=== PATIENT | female | born 1960 | race Caucasian/White ===

== ENCOUNTER 2019-11-28 16:09 | Inpatient (IN) | payer MEDICAID ==
[~2019-11-28] VITALS: Ht 157.5 cm; Wt 80.5 kg
[2019-11-28] VITALS (7 sets, daily range): BP systolic 112–145; BP diastolic 52–77
--- NOTE | 2019-11-28 16:16 | NUR ---
PT BIB [facility], PER PT REPORT SHE HAS BEEN HAVING "ORTHOSTATIC ISSUES" FOR THE PAST WEEK. WHEN PT GOES FROM SITTING TO STANDING PT FEELS NAUSEATED, LIGHTHEADED AND HAS TO SIT DOWN. PER EMS PT BP SITTING 110/60, STANDIG 88/50. PIV INITITATED EN ROUTE, PT RECIEVED 200CC NS. PT DENIES CP, SOB AT THIS TIME. PT TO CARD MONITOR, BP, CONT PULSE
[2019-11-28] MEDS ORDERED: SODIUM CHLORIDE 0.9% 1,000ML IVBOLUS ONE (17:00)
[2019-11-28] MEDS ORDERED: PLEASE ENTER ALLERGIES MC SCH (17:00)
[2019-11-28 17:23] LABS: ALANINE AMINOTRANSFERASE 20 U/L (12-78); ANION GAP 7 mmol/L (5-15); CALCIUM 8.5 mg/dL (8.5-10.1); CHLORIDE 108 mmol/L (98-107); CREATININE 0.53 mg/dL (0.55-1.02)
[2019-11-28 17:27] LABS: ALKALINE PHOSPHATASE 99 U/L (45-117); BILIRUBIN,TOTAL 1.1 mg/dL (0.2-1.0); TROPONIN I < 0.015 ng/mL (0.000-0.045)
[2019-11-28 17:31] LABS: MD YES; MEAN CORPUSCULAR HEMOGLOBIN 16.5 pg (27.0-34.8); MEAN CORPUSCULAR VOLUME 59.2 fL (80-100); MEAN PLATELET VOLUME 7.6 fL (7.4-10.4); PLATELET COUNT 187 x10^3/uL (130-400); RED CELL DISTRIBUTION WIDTH 20.3 % (9.6-15.2)
[2019-11-28 17:37] LABS: BASOS#(MANUAL) 0.14 x10^3/uL (0-0.1); BASOS% (MANUAL) 3 % (0-1); EOS#(MANUAL) 0.05 x10^3/uL (0.0-0.4); EOS% (MANUAL) 1 % (1-7); LYMPHS% (MANUAL) 24 % (22-44); MONOS#(MANUAL) 0.09 x10^3/uL (0.3-2.7); MONOS% (MANUAL) 2 % (2-9); SEG#(MANUAL) 3.22 x10^3/uL (1.8-6.8); SEGS% (MANUAL) 70 % (42-75)
[2019-11-28 17:38] LABS: ANISOCYTOSIS 2+; HYPOCHROMIA 2+; MICROCYTOSIS 2+
--- NOTE | 2019-11-28 17:38 | NUR ---
PT TO CT AT THIS TIME. LAB CALLED WITH CRITICAL RESULTS HGB 4.5, HCT 16. ERMD UPDATED
[2019-11-28 17:39] LABS: TEAR DROPS 1+
[2019-11-28 17:40] LABS: <PLATELET ESTIMATE> ADEQUATE; OVALOCYTES 1+; SPHEROCYTES 1+; TARGET CELLS 1+
[2019-11-28 17:41] LABS: <PLT MORPHOLOGY> NORMAL PLT MORPH
--- NOTE | 2019-11-28 18:07 | NUR ---
ADDITIONAL IV ACCESS INITIATED. ASSISTED ERMD WITH BEDSIDE RECTAL EXAM, PT + GUAIC. LAB IN TO DRAW TYPE/CROSS
[2019-11-28] MEDS ORDERED: PANTOPRAZOLE 40 MG IV ONE ×2 (18:25→19:02)
[2019-11-28] MEDS ORDERED: PANTOPRAZOLE 40 MG IV IVPush ONE ×2 (18:30→19:00)
--- NOTE | 2019-11-28 18:49 | NUR ---
REPORT RECEIVED FORM MICHELLE DE LEON. PLAN OF CARE DISCUSSED. BLOOD INFUSION RUNNING AT THIS TIME
[2019-11-28] MEDS: SODIUM CHLORIDE 0.9% 1,000 ML IV SCH ×2 (19:01→22:00)
[2019-11-28] MEDS ORDERED: BISACODYL 10 MG SUPP PR PRN (19:30)
[2019-11-28] MEDS: NICOTINE 14MG/24 HR PATCH.TD24 TD SCH (19:30)
[2019-11-28] MEDS ORDERED: ONDANSETRON ODT 4 MG PO PRN (19:30)
[2019-11-28] MEDS ORDERED: POLYETHYLENE GLYCOL 17 GM PACKET PO PRN (19:30)
[2019-11-28 19:31] LABS: INTERNATIONAL NORMALIZED RATIO 1.09 (0.93-1.1); PROTHROMBIN TIME 11.6 Seconds (9.6-11.5)
[2019-11-28 19:52] LABS: FREE T4 (FREE THYROXINE) 0.59 ng/dL (0.76-1.46)
--- NOTE | 2019-11-28 19:53 | NUR ---
BLOOD TRANSFUSION COMPLETED. REPORT GIVEN TO MICHELLE HERNANDEZ. PLAN OF CARE DISCUSSED. MAINTINENCE IVF RUNNING AT THIS TIME
[2019-11-28] MEDS: PANTOPRAZOLE 80 MG in SODIUM CHLORIDE 0.9% 100 ML IV SCH (19:58)
--- NOTE | 2019-11-28 20:01 | NUR ---
IV PROTONIX DRIP STARTED PRIOR TO TRANSFER
[2019-11-28] MEDS: ACETAMINOPHEN 325 MG TABLET PO PRN (23:24)
[2019-11-28] MEDS ORDERED: CHLORDIAZEPOXIDE 25 MG CAPSULE PO PRN (23:30)
[2019-11-28] MEDS ORDERED: LORazepam 2 MG/ML, 1ML IVPush PRN (23:30)
[2019-11-29] VITALS (19 sets, daily range): BP systolic 107–146; BP diastolic 64–79
[2019-11-29 05:54] LABS: MEAN CORPUSCULAR HEMOGLOBIN 20.5 pg (27.0-34.8); MEAN CORPUSCULAR HGB CONC 30.2 g/dL (32.4-35.8); MEAN PLATELET VOLUME 7.6 fL (7.4-10.4); PLATELET COUNT 155 x10^3/uL (130-400); RED BLOOD COUNT 3.17 x10^6/uL (3.82-5.3); RED CELL DISTRIBUTION WIDTH 26.8 % (9.6-15.2)
[2019-11-29 05:56] LABS: ANION GAP 6 mmol/L (5-15); CALCIUM 7.8 mg/dL (8.5-10.1); CHLORIDE 111 mmol/L (98-107)
[2019-11-29] MEDS: PANTOPRAZOLE 80 MG in SODIUM CHLORIDE 0.9% 100 ML IV SCH ×2 (05:58→16:03)
[2019-11-29 06:02] LABS: % IRON SATURATION 20 % (20-55); IRON LEVEL 92 mcg/dL (50-170); TOTAL IRON BINDING CAPACITY 456 mcg/dL (250-450); TROPONIN I < 0.015 ng/mL (0.000-0.045)
[2019-11-29 06:26] LABS: ANISOCYTOSIS 2+; BASOPHILS # (AUTO) 0.07 x10^3/uL (0-0.1); BASOPHILS % (AUTO) 1 % (0-1); EOSINOPHILS # (AUTO) 0.15 x10^3/uL (0-0.4); EOSINOPHILS % (AUTO) 3 % (1-7); HYPOCHROMIA 2+; LYMPHOCYTES # (AUTO) 1.47 x10^3/uL (1-3.4); LYMPHOCYTES % (AUTO) 31 % (22-44); MD MORPH REVIEW ONLY; MICROCYTOSIS 2+; MONOCYTES # (AUTO) 0.28 x10^3/uL (0.2-0.8); MONOCYTES % (AUTO) 6 % (2-9); NEUTROPHILS # (AUTO) 2.77 x10^3/uL (1.8-6.8); NEUTROPHILS % (AUTO) 58 % (42-75); POLYCHROMASIA 1+
[2019-11-29 06:27] LABS: OVALOCYTES 1+; TEAR DROPS 1+
[2019-11-29 06:28] LABS: <PLATELET ESTIMATE> ADEQUATE; <PLT MORPHOLOGY> NORMAL PLT MORPH
[2019-11-29] MEDS ORDERED: THIAMINE 200 MG in SODIUM CHLORIDE 0.9% 50 ML IV ONE (07:30)
[2019-11-29] MEDS: SENNA/DOCUSATE TABLET PO SCH (07:56)
[2019-11-29] MEDS ORDERED: PROPOFOL 10 MG/ML, 20ML ONE (09:58)
[2019-11-29] MEDS ORDERED: POTASSIUM CHLORIDE 20 MEQ, MAGNESIUM SULFATE 1 GM, MVI ADULT 10 ML, THIAMINE 200 MG, FO... IV SCH (12:00)
[2019-11-29 12:29] LABS: TROPONIN I 0.016 ng/mL (0.000-0.045)
[2019-11-29] MEDS ORDERED: MOVIPREP POWDER 1 PREP KIT PO ONE (15:00)
[2019-11-29] MEDS ORDERED: POTASSIUM CHLORIDE 20 MEQ in SODIUM CHLORIDE 0.9% 1,000 ML IV SCH (19:01)
[2019-11-29] MEDS: NICOTINE 14MG/24 HR PATCH.TD24 TD SCH (19:30)
[2019-11-29] MEDS: ACETAMINOPHEN 325 MG TABLET PO PRN (19:40)
[2019-11-30 02:16] VITALS: BP 132/62
[2019-11-30] MEDS: PANTOPRAZOLE 80 MG in SODIUM CHLORIDE 0.9% 100 ML IV SCH (03:14)
[2019-11-30 05:46] LABS: ANION GAP 7 mmol/L (5-15); CALCIUM 8.1 mg/dL (8.5-10.1); CHLORIDE 114 mmol/L (98-107)
[2019-11-30 05:48] LABS: CREATININE 0.49 mg/dL (0.55-1.02); MEAN CORPUSCULAR HEMOGLOBIN 22.5 pg (27.0-34.8); MEAN CORPUSCULAR HGB CONC 31.1 g/dL (32.4-35.8); MEAN CORPUSCULAR VOLUME 72.2 fL (80-100); MEAN PLATELET VOLUME 7.7 fL (7.4-10.4); PLATELET COUNT 167 x10^3/uL (130-400); RED BLOOD COUNT 3.69 x10^6/uL (3.82-5.3); RED CELL DISTRIBUTION WIDTH 27.8 % (9.6-15.2)
[2019-11-30 06:18] LABS: BASOPHILS # (AUTO) 0.07 x10^3/uL (0-0.1); BASOPHILS % (AUTO) 1 % (0-1); EOSINOPHILS # (AUTO) 0.11 x10^3/uL (0-0.4); EOSINOPHILS % (AUTO) 2 % (1-7); LYMPHOCYTES % (AUTO) 30 % (22-44); MD SCAN; MONOCYTES # (AUTO) 0.32 x10^3/uL (0.2-0.8); MONOCYTES % (AUTO) 6 % (2-9); NEUTROPHILS # (AUTO) 3.27 x10^3/uL (1.8-6.8); NEUTROPHILS % (AUTO) 61 % (42-75)
[2019-11-30] MEDS ORDERED: POTASSIUM CHLORIDE 20 MEQ in SODIUM CHLORIDE 0.9% 1,000 ML IV SCH (07:00)
[2019-11-30 07:58] VITALS: BP 131/78
[2019-11-30] MEDS ORDERED: hydrALAzine 20 MG/ML, 1ML IV PRN (09:00)
[2019-11-30] MEDS: SENNA/DOCUSATE TABLET PO SCH (09:00)
[2019-11-30] MEDS ORDERED: DIAZEPAM 5 MG/ML, 2ML IVPush PRN (09:00)
[2019-11-30] MEDS ORDERED: HALOPERIDOL 5 MG/ML IV PRN (09:00)
[2019-11-30] MEDS ORDERED: MIDAZOLAM 1 MG/ML, 2ML IV PRN (09:00)
[2019-11-30] MEDS ORDERED: HYDROmorphone 2 MG/ML, 1ML IVPush PRN (09:00)
[2019-11-30] MEDS ORDERED: PROMETHAZINE 12.5 MG SUPP PR PRN (09:00)
[2019-11-30] MEDS ORDERED: ONDANSETRON 2MG/ML, 2ML IV PRN (09:00)
[2019-11-30] MEDS ORDERED: OXYcodone 5 MG/5 ML ORAL.SOL UDC PO PRN (09:00)
[2019-11-30] MEDS ORDERED: ONDANSETRON ODT 8 MG PO PRN (09:00)
[2019-11-30] MEDS ORDERED: MEPERIDINE/PF 25MG/ML,1ML IVPush PRN (09:00)
[2019-11-30] MEDS ORDERED: LABETALOL 5MG/ML, 20ML IV PRN (09:00)
[2019-11-30] MEDS ORDERED: EPHEDRINE 50 MG/ML, 1ML IVPush PRN (09:00)
[2019-11-30] MEDS ORDERED: FENTANYL PF 100 MCG/2ML IV PRN (09:00)
[2019-11-30] MEDS ORDERED: ALBUTEROL SULFATE 2.5 MG/3 ML NPPB PRN (09:00)
[2019-11-30] MEDS ORDERED: PROMETHAZINE 25 MG/ML, 1ML IV PRN (09:00)
[2019-11-30] MEDS ORDERED: PROPOFOL 10 MG/ML, 20ML ONE (09:10)
[2019-11-30] MEDS ORDERED: PANT40TA5 PO (10:48)
[2019-11-30] MEDS ORDERED: LEVO25TA4 PO (10:48)
[2019-11-30] MEDS ORDERED: MULT1TAB60 PO (10:49)
[2019-11-30] MEDS ORDERED: PANTOPROZOLE 40MG TABLET PO SCH (11:00)
[2019-11-30] MEDS ORDERED: CYAN-27 PO (11:03)
[2019-11-30 15:53] VITALS: BP 124/74
== END 2019-11-30 19:39 | disposition home or self-care (01) | DRG 378 ==
LOC: ED 18:55 → EDIP 19:01 → ED 19:38 → 4WST 20:11
PROVIDERS: ADMIT Hospitalist; ATTEND Hospitalist
PROC: 30233N1 Transfusion of Nonautologous Red Blood Cells into Peripheral Vein, Percutaneous Approach (ICD-10-PCS; 2019-11-28)
PROC: 0DJD8ZZ Inspection of Lower Intestinal Tract, Via Natural or Artificial Opening Endoscopic (ICD-10-PCS; 2019-11-29)
PROC: 0DJ08ZZ Inspection of Upper Intestinal Tract, Via Natural or Artificial Opening Endoscopic (ICD-10-PCS; principal; 2019-11-29 12:00)
DX: K92.1 Melena (principal); D62 Acute posthemorrhagic anemia; E03.9 Hypothyroidism, unspecified; E87.6 Hypokalemia; F10.20 Alcohol dependence, uncomplicated; F17.210 Nicotine dependence, cigarettes, uncomplicated; F32.9 Major depressive disorder, single episode, unspecified; F41.9 Anxiety disorder, unspecified; G25.81 Restless legs syndrome; Z66 Do not resuscitate; K57.90 Diverticulosis of intestine, part unspecified, without perforation or abscess without bleeding; K64.8 Other hemorrhoids; Z80.8 Family history of malignant neoplasm of other organs or systems; Z87.19 Personal history of other diseases of the digestive system; Z92.3 Personal history of irradiation
CPT/HCPCS: 36415; 36430; 70450; 71045; 80048; 80053; 80307; 82607; 83540; 83550; 84439; 84443; 84484; 85014; 85018; 85025; 85610; 85730; 86850; 86900; 86923; 93005; 96374; 96376; G0378; J2704; J3411; J3475; J3480; C9113; J7030; P9016

== ENCOUNTER 2020-11-18 11:45 | Inpatient (IN) | payer MEDICAID ==
[~2020-11-18] VITALS: Ht 157.5 cm; Wt 94.4 kg
[2020-11-18] VITALS (7 sets, daily range): BP systolic 105–124; BP diastolic 52–64
[~2020-11-18 11:45] MED LIST: CYAN-27 PO; LEVO25TA4 PO; MULT-449 PO; PANT40TA6 PO
[2020-11-18 13:28] LABS: BASOPHILS % (AUTO) 1 % (0-1); EOSINOPHILS % (AUTO) 1 % (1-7); LYMPHOCYTES % (AUTO) 21 % (22-44); MEAN CORPUSCULAR HEMOGLOBIN 19.8 pg (27.0-34.8); MEAN PLATELET VOLUME 8.7 fL (7.4-10.4); MONOCYTES % (AUTO) 11 % (2-9); NEUTROPHILS % (AUTO) 66 % (42-75); PLATELET COUNT 127 x10^3/uL (130-400); RED BLOOD COUNT 3.81 x10^6/uL (3.82-5.3); RED CELL DISTRIBUTION WIDTH 19.7 % (9.6-15.2)
[2020-11-18] MEDS ORDERED: ONDANSETRON 2MG/ML, 2ML IVPush ONE (13:30)
[2020-11-18] MEDS ORDERED: SODIUM CHLORIDE 0.9% 1,000ML IVBOLUS ONE (13:30)
[2020-11-18] MEDS ORDERED: ONDANSETRON 2MG/ML, 2ML ONE (13:32)
[2020-11-18 13:38] LABS: ALBUMIN 3.4 g/dL (3.4-5.0); ANION GAP 9 mmol/L (5-15); CALCIUM 9.2 mg/dL (8.5-10.1); CHLORIDE 106 mmol/L (98-107)
[2020-11-18 13:42] LABS: ALANINE AMINOTRANSFERASE 29 U/L (12-78); ALKALINE PHOSPHATASE 95 U/L (45-117); CREATININE 0.59 mg/dL (0.55-1.02); TOTAL PROTEIN 8.1 g/dL (6.4-8.2)
[2020-11-18 13:45] LABS: MD SCAN; MEAN CORPUSCULAR HGB CONC 29.7 g/dL (32.4-35.8)
--- NOTE | 2020-11-18 15:29 | NUR ---
dr aviles in room to do consent witnessed by this rn. pt in bed with no signs or symptoms of acute distress noted repsirations even and unlabored. second iv started, pt ready for blood, pump in room with blood tubbing primed and ready
[2020-11-18 15:43] LABS: MICROSCOPIC INDICATED
[2020-11-18] MEDS ORDERED: CEFTRIAXONE PMX 1GM/50ML 50 ML ONE (16:43)
[2020-11-18] MEDS ORDERED: PANTOPRAZOLE 80 MG in SODIUM CHLORIDE 0.9% 100 ML IV SCH ×2 (17:00→18:00)
[2020-11-18] MEDS ORDERED: CEFTRIAXONE PMX 1GM/50ML 50 ML IV ONE (17:00)
[2020-11-18] MEDS ORDERED: MORPHINE SULFATE 4 MG/ML, 1ML ONE (17:14)
[2020-11-18] MEDS ORDERED: PANTOPRAZOLE 80 MG in SODIUM CHLORIDE 0.9% 50 ML IV ONE ×2 (17:30→17:45)
[2020-11-18] MEDS ORDERED: MORPHINE SULFATE 4 MG/ML, 1ML IVPush ONE (17:30)
--- NOTE | 2020-11-18 17:33 | NUR ---
report called to floor, rn states that bed is not available at this time. pt in bed with no signs or symptoms of acute dsitress noted respirations even and unlabore.d pt on quality assurance monitor final with o2 via nc at 1l/min, satting 99%. pt aware and agreeable with plan of care. this rn called pharm to confirm protonix dose, schedule adjusted and pharmacist state med is ready to administer
[2020-11-18] MEDS ORDERED: THIAMINE 200 MG in SODIUM CHLORIDE 0.9% 50 ML IV ONE (18:00)
[2020-11-18] MEDS: PANTOPRAZOLE 80 MG in SODIUM CHLORIDE 0.9% 100 ML IV SCH (18:00)
[2020-11-18] MEDS ORDERED: ONDANSETRON 2MG/ML, 2ML IVPush PRN (18:00)
[2020-11-18] MEDS ORDERED: POTASSIUM CHLORIDE 20 MEQ TAB.ER.PRT PO ONE (18:30)
[2020-11-18] MEDS ORDERED: GOLYTELY 4,000ML ORAL.SOL PO ONE ×2 (19:30→21:30)
[2020-11-18] MEDS: SODIUM CHLORIDE 0.9% 1,000 ML IV SCH (21:22)
[2020-11-19 00:16] VITALS: BP 117/77
[2020-11-19] MEDS: PANTOPRAZOLE 80 MG in SODIUM CHLORIDE 0.9% 100 ML IV SCH ×2 (02:45→14:52)
[2020-11-19] MEDS: LEVOTHYROXINE 50 MCG TABLET PO SCH (05:41)
[2020-11-19 05:54] LABS: ALBUMIN 3.1 g/dL (3.4-5.0); ANION GAP 8 mmol/L (5-15); CALCIUM 8.3 mg/dL (8.5-10.1); CHLORIDE 108 mmol/L (98-107)
[2020-11-19 05:57] LABS: ALANINE AMINOTRANSFERASE 27 U/L (12-78); ALKALINE PHOSPHATASE 89 U/L (45-117); BILIRUBIN,TOTAL 2.2 mg/dL (0.2-1.0); CREATININE 0.57 mg/dL (0.55-1.02); TOTAL PROTEIN 7.7 g/dL (6.4-8.2)
[2020-11-19 06:00] LABS: BASOPHILS % (AUTO) 5 % (0-1); EOSINOPHILS % (AUTO) 3 % (1-7); LYMPHOCYTES % (AUTO) 18 % (22-44); MEAN CORPUSCULAR HEMOGLOBIN 21.1 pg (27.0-34.8); MEAN PLATELET VOLUME 8.2 fL (7.4-10.4); MONOCYTES % (AUTO) 7 % (2-9); NEUTROPHILS % (AUTO) 67 % (42-75); PLATELET COUNT 111 x10^3/uL (130-400); RED BLOOD COUNT 3.94 x10^6/uL (3.82-5.3); RED CELL DISTRIBUTION WIDTH 22.7 % (9.6-15.2)
[2020-11-19 06:17] LABS: MD MORPH REVIEW ONLY; MEAN CORPUSCULAR HGB CONC 29.9 g/dL (32.4-35.8)
[2020-11-19 06:20] LABS: AMPHETAMINE SCREEN, URINE Negative (Negative); BARBITURATE SCREEN, URINE Negative (Negative); BENZODIAZEPINE SCREEN, URINE Negative (Negative); CANNABINOID SCREEN, URINE Negative (Negative); COCAINE SCREEN, URINE Negative (Negative); METHADONE SCREEN, URINE Negative (Negative); OPIATE SCREEN, URINE Positive (Negative)
[2020-11-19 06:20] LABS: ANISOCYTOSIS 2+; HYPOCHROMIA 1+; MICROCYTOSIS 2+
[2020-11-19 06:21] LABS: <PLATELET ESTIMATE> ADEQUATE; <PLT MORPHOLOGY> NORMAL PLT MORPH; OVALOCYTES 1+; STOMATOCYTES 1+
[2020-11-19 06:34] VITALS: BP 118/75
[2020-11-19] MEDS: MULTIVITAMINS WITH IRON TABLET PO SCH (08:15)
[2020-11-19] MEDS: SODIUM CHLORIDE 0.9% 1,000 ML IV SCH ×2 (08:16→21:01)
[2020-11-19] MEDS: ACETAMINOPHEN 325 MG TABLET PO PRN ×2 (08:31→20:09)
[2020-11-19 11:28] LABS: INTERNATIONAL NORMALIZED RATIO 1.23 (0.93-1.1); PROTHROMBIN TIME 13.1 Seconds (9.6-11.5)
[2020-11-19] MEDS ORDERED: CHLORHEXIDINE 15 ML UDC ONE (11:49)
[2020-11-19] MEDS ORDERED: PROPOFOL 50 ML ONE (12:16)
[2020-11-19] MEDS ORDERED: ONDANSETRON 2MG/ML, 2ML IVPush PRN (12:30)
[2020-11-19] MEDS ORDERED: EPHEDRINE 50 MG/ML, 1ML IM PRN (12:30)
[2020-11-19] MEDS ORDERED: EPHEDRINE 50 MG/ML, 1ML IVPush PRN (12:30)
[2020-11-19] MEDS ORDERED: MEPERIDINE/PF 25MG/0.5ML IVPush PRN (12:30)
[2020-11-19] MEDS ORDERED: DIAZEPAM 5 MG/ML, 2ML IVPush PRN (12:30)
[2020-11-19] MEDS ORDERED: LABETALOL 5MG/ML, 20ML IV PRN (12:30)
[2020-11-19] MEDS ORDERED: DIPHENHYDRAMINE 50 MG/ML, 1ML IVPush PRN (12:30)
[2020-11-19] MEDS ORDERED: FENTANYL PF 100 MCG/2ML IV PRN (12:30)
[2020-11-19] MEDS ORDERED: PROMETHAZINE 25 MG/ML, 1ML IVPush PRN (12:30)
[2020-11-19] MEDS: CEFTRIAXONE PMX 1GM/50ML 50 ML IV SCH (17:11)
[2020-11-19 19:59] VITALS: BP 133/73
[2020-11-20 00:51] VITALS: BP 112/63
[2020-11-20] MEDS: PANTOPRAZOLE 80 MG in SODIUM CHLORIDE 0.9% 100 ML IV SCH ×3 (00:55→23:58)
[2020-11-20] MEDS: LEVOTHYROXINE 50 MCG TABLET PO SCH (05:44)
[2020-11-20 06:42] VITALS: BP 129/71
[2020-11-20 07:00] LABS: MEAN CORPUSCULAR HEMOGLOBIN 21.5 pg (27.0-34.8); MEAN CORPUSCULAR HGB CONC 30.2 g/dL (32.4-35.8); MEAN PLATELET VOLUME 7.6 fL (7.4-10.4); PLATELET COUNT 124 x10^3/uL (130-400); RED BLOOD COUNT 3.79 x10^6/uL (3.82-5.3); RED CELL DISTRIBUTION WIDTH 22.5 % (9.6-15.2)
[2020-11-20 07:14] LABS: ALANINE AMINOTRANSFERASE 28 U/L (12-78); ANION GAP 8 mmol/L (5-15); CALCIUM 8.3 mg/dL (8.5-10.1); CHLORIDE 110 mmol/L (98-107)
[2020-11-20 07:17] LABS: ALKALINE PHOSPHATASE 87 U/L (45-117); BILIRUBIN,TOTAL 1.3 mg/dL (0.2-1.0); CREATININE 0.51 mg/dL (0.55-1.02); TOTAL PROTEIN 7.4 g/dL (6.4-8.2)
[2020-11-20 07:28] LABS: MD YES
[2020-11-20 07:30] LABS: ANISOCYTOSIS 1+; BAND#(MANUAL) 0.05 x10^3/uL; BANDS%(MANUAL) 1 % (0-7); BASOS#(MANUAL) 0.05 x10^3/uL (0-0.1); BASOS% (MANUAL) 1 % (0-1); EOS% (MANUAL) 2 % (1-7); HYPOCHROMIA 1+; LYMPHS% (MANUAL) 23 % (22-44); MICROCYTOSIS 1+; MONOS#(MANUAL) 0.14 x10^3/uL (0.3-2.7); MONOS% (MANUAL) 3 % (2-9); SEG#(MANUAL) 3.36 x10^3/uL (1.8-6.8); SEGS% (MANUAL) 70 % (42-75)
[2020-11-20 07:32] LABS: <PLATELET ESTIMATE> DECREASED; LARGE PLATELETS 1+
[2020-11-20] MEDS: SODIUM CHLORIDE 0.9% 1,000 ML IV SCH ×2 (10:00→20:47)
[2020-11-20] MEDS: MULTIVITAMINS WITH IRON TABLET PO SCH (10:14)
[2020-11-20 14:00] VITALS: BP 125/71
[2020-11-20] MEDS: ACETAMINOPHEN 325 MG TABLET PO PRN ×2 (16:33→23:06)
[2020-11-20] MEDS: CEFTRIAXONE PMX 1GM/50ML 50 ML IV SCH (17:27)
[2020-11-20 18:43] VITALS: BP 130/64
[2020-11-20] MEDS ORDERED: OMNIPAQUE 350 MG/ML, 75ML BOTTLE ONE (22:44)
[2020-11-21 00:02] VITALS: BP 134/75
[2020-11-21 06:00] LABS: ANION GAP 7 mmol/L (5-15); CALCIUM 8.2 mg/dL (8.5-10.1); CHLORIDE 112 mmol/L (98-107); CREATININE 0.44 mg/dL (0.55-1.02)
[2020-11-21 06:05] LABS: MEAN CORPUSCULAR HEMOGLOBIN 21.7 pg (27.0-34.8); MEAN CORPUSCULAR HGB CONC 30.4 g/dL (32.4-35.8); MEAN PLATELET VOLUME 8.4 fL (7.4-10.4); PLATELET COUNT 119 x10^3/uL (130-400); RED BLOOD COUNT 3.52 x10^6/uL (3.82-5.3); RED CELL DISTRIBUTION WIDTH 23.2 % (9.6-15.2)
[2020-11-21] MEDS: LEVOTHYROXINE 50 MCG TABLET PO SCH (06:31)
[2020-11-21] MEDS: SODIUM CHLORIDE 0.9% 1,000 ML IV SCH (06:32)
[2020-11-21 06:45] LABS: MD YES
[2020-11-21 06:48] LABS: <PLATELET ESTIMATE> DECREASED; ANISOCYTOSIS 1+; EOS#(MANUAL) 0.14 x10^3/uL (0.0-0.4); EOS% (MANUAL) 3 % (1-7); HYPOCHROMIA 1+; LYMPH#(MANUAL) 1.41 x10^3/uL (1-3.4); LYMPHS% (MANUAL) 30 % (22-44); MICROCYTOSIS 1+; MONOS#(MANUAL) 0.19 x10^3/uL (0.3-2.7); MONOS% (MANUAL) 4 % (2-9); OVALOCYTES 1+; POLYCHROMASIA 1+; SEG#(MANUAL) 2.96 x10^3/uL (1.8-6.8); SEGS% (MANUAL) 63 % (42-75)
[2020-11-21 06:49] LABS: LARGE PLATELETS 1+
[2020-11-21 06:57] VITALS: BP 136/77
[2020-11-21] MEDS ORDERED: POTASSIUM CHLORIDE 20 MEQ in SODIUM CHLORIDE 0.9% 250 ML IV ONE (07:00)
[2020-11-21] MEDS ORDERED: POTASSIUM CHLORIDE 10% 40 MEQ/30 ML UDC PO ONE ×2 (07:00→17:30)
[2020-11-21] MEDS ORDERED: POTASSIUM CHLORIDE 20 MEQ TAB.ER.PRT ONE (07:30)
[2020-11-21] MEDS: MULTIVITAMINS WITH IRON TABLET PO SCH (07:42)
[2020-11-21] MEDS: PANTOPRAZOLE 40MG TABLET PO SCH ×2 (07:42→21:28)
[2020-11-21] MEDS ORDERED: MAGNESIUM SULFATE PMX 2GM/50ML 50 ML IV ONE (08:30)
[2020-11-21 11:51] VITALS: BP 137/81
[2020-11-21] MEDS ORDERED: SODIUM CHLORIDE 0.9% 1,000 ML IV SCH (12:00)
[2020-11-21] MEDS ORDERED: CEFAZOLIN PMX 1GM/50ML 50 ML IVPB ONE (12:00)
[2020-11-21] MEDS ORDERED: CEFAZOLIN PMX 1GM/50ML 50 ML ONE (14:13)
[2020-11-21] MEDS ORDERED: LIDOCAINE 1%, 20ML ONE (14:13)
[2020-11-21] MEDS ORDERED: FENTANYL PF 100 MCG/2ML ONE (14:13)
[2020-11-21] MEDS ORDERED: MIDAZOLAM 1 MG/ML, 2ML ONE ×4 (14:13→15:18)
[2020-11-21] MEDS ORDERED: CEFAZOLIN 1,000 MG ONE (14:13)
[2020-11-21] MEDS ORDERED: LIDOCAINE 2%, 20ML ONE (14:56)
[2020-11-21 16:00] VITALS: BP 141/70
[2020-11-21] MEDS ORDERED: HOLD MEDICATION MC PRN (16:00)
[2020-11-21] MEDS: ACETAMINOPHEN 325 MG TABLET PO PRN (16:27)
[2020-11-21] MEDS: SODIUM CHLORIDE FLUSH 10ML SYR IVF SCH (21:00)
[2020-11-21] MEDS: CEFTRIAXONE PMX 1GM/50ML 50 ML IV SCH (21:29)
[2020-11-21 21:32] VITALS: BP 127/74
[2020-11-21] MEDS: CEFAZOLIN PMX 1GM/50ML 50 ML IVPB SCH (23:34)
[2020-11-22] VITALS (9 sets, daily range): BP systolic 98–134; BP diastolic 64–76
[2020-11-22] MEDS: LEVOTHYROXINE 50 MCG TABLET PO SCH (06:26)
[2020-11-22] MEDS: CEFAZOLIN PMX 1GM/50ML 50 ML IVPB SCH (06:26)
[2020-11-22 06:31] LABS: MEAN CORPUSCULAR HEMOGLOBIN 21.5 pg (27.0-34.8); MEAN PLATELET VOLUME 7.8 fL (7.4-10.4); PLATELET COUNT 167 x10^3/uL (130-400); RED BLOOD COUNT 3.31 x10^6/uL (3.82-5.3); RED CELL DISTRIBUTION WIDTH 24.2 % (9.6-15.2)
[2020-11-22 06:47] LABS: CHLORIDE 110 mmol/L (98-107)
[2020-11-22 06:53] LABS: ANION GAP 8 mmol/L (5-15); CALCIUM 8.1 mg/dL (8.5-10.1); CREATININE 0.49 mg/dL (0.55-1.02)
[2020-11-22 07:42] LABS: MD YES; MEAN CORPUSCULAR HGB CONC 29.6 g/dL (32.4-35.8)
[2020-11-22 07:44] LABS: ANISOCYTOSIS 1+; EOS#(MANUAL) 0.22 x10^3/uL (0.0-0.4); EOS% (MANUAL) 4 % (1-7); HYPOCHROMIA 1+; LYMPH#(MANUAL) 0.72 x10^3/uL (1-3.4); LYMPHS% (MANUAL) 13 % (22-44); MICROCYTOSIS 1+; MONOS#(MANUAL) 0.44 x10^3/uL (0.3-2.7); MONOS% (MANUAL) 8 % (2-9); POLYCHROMASIA 1+; SEG#(MANUAL) 4.13 x10^3/uL (1.8-6.8); SEGS% (MANUAL) 75 % (42-75)
[2020-11-22 07:45] LABS: <PLATELET ESTIMATE> ADEQUATE; <PLT MORPHOLOGY> NORMAL PLT MORPH
[2020-11-22] MEDS: MULTIVITAMINS WITH IRON TABLET PO SCH (09:49)
[2020-11-22] MEDS: PANTOPRAZOLE 40MG TABLET PO SCH (09:49)
[2020-11-22] MEDS: SODIUM CHLORIDE FLUSH 10ML SYR IVF SCH (09:51)
[2020-11-22] MEDS ORDERED: PANT40TA6 PO (11:50)
== END 2020-11-22 17:22 | disposition home or self-care (01) | DRG 243 ==
LOC: ED 14:30 → EDIP 16:38 → 4EST 18:04 → 5SO 11-21 15:17
PROVIDERS: ADMIT Internal Medicine; ATTEND Internal Medicine
PROC: 30233N1 Transfusion of Nonautologous Red Blood Cells into Peripheral Vein, Percutaneous Approach (ICD-10-PCS; 2020-11-18)
PROC: 0DB98ZX Excision of Duodenum, Via Natural or Artificial Opening Endoscopic, Diagnostic (ICD-10-PCS; 2020-11-19)
PROC: 0DB68ZX Excision of Stomach, Via Natural or Artificial Opening Endoscopic, Diagnostic (ICD-10-PCS; 2020-11-19)
PROC: 0DB58ZX Excision of Esophagus, Via Natural or Artificial Opening Endoscopic, Diagnostic (ICD-10-PCS; 2020-11-19)
PROC: 0DBK8ZX Excision of Ascending Colon, Via Natural or Artificial Opening Endoscopic, Diagnostic (ICD-10-PCS; 2020-11-19)
PROC: 02H63JZ Insertion of Pacemaker Lead into Right Atrium, Percutaneous Approach (ICD-10-PCS; principal; 2020-11-21)
PROC: 02HK3JZ Insertion of Pacemaker Lead into Right Ventricle, Percutaneous Approach (ICD-10-PCS; 2020-11-21)
PROC: 0JH606Z Insertion of Pacemaker, Dual Chamber into Chest Subcutaneous Tissue and Fascia, Open Approach (ICD-10-PCS; 2020-11-21)
PROC: B5171ZZ Fluoroscopy of Left Subclavian Vein using Low Osmolar Contrast (ICD-10-PCS; 2020-11-21)
DX: I44.2 Atrioventricular block, complete (principal); N39.0 Urinary tract infection, site not specified; D68.9 Coagulation defect, unspecified; G25.81 Restless legs syndrome; F17.200 Nicotine dependence, unspecified, uncomplicated; F10.20 Alcohol dependence, uncomplicated; I49.5 Sick sinus syndrome; K31.7 Polyp of stomach and duodenum; K59.00 Constipation, unspecified; K63.5 Polyp of colon; K70.9 Alcoholic liver disease, unspecified; E03.9 Hypothyroidism, unspecified; D50.0 Iron deficiency anemia secondary to blood loss (chronic); B96.1 Klebsiella pneumoniae [K. pneumoniae] as the cause of diseases classified elsewhere; E66.9 Obesity, unspecified; F41.9 Anxiety disorder, unspecified; K57.90 Diverticulosis of intestine, part unspecified, without perforation or abscess without bleeding; R68.81 Early satiety; E83.42 Hypomagnesemia; Z20.822 Contact with and (suspected) exposure to COVID-19; E87.6 Hypokalemia; Z87.19 Personal history of other diseases of the digestive system; Z91.19 Patient's noncompliance with other medical treatment and regimen; Z79.899 Other long term (current) drug therapy; Z90.89 Acquired absence of other organs; Z68.38 Body mass index [BMI] 38.0-38.9, adult; Z80.9 Family history of malignant neoplasm, unspecified; Z82.49 Family history of ischemic heart disease and other diseases of the circulatory system
CPT/HCPCS: 36415; 96374; 96375; 99285; J3490; 36430; 71045; 71260; 76700; 80048; 80053; 80074; 80307; 81001; 82607; 82728; 83540; 83550; 83690; 83735; 84100; 84132; 84443; 84466; 85014; 85018; 85025; 85610; 86704; 86705; 86706; 86707; 86709; 86803; 86850; 86900; 86923; 87077; 87086; 87186; 87340; 87350; 87635; 88305; 93005; 93306; G0378; J0690; J0696; J2250; J2405; J2704; J3010; J3411; J3480; Q9967; C9113; J2270; J3475; J7030; J7050; P9016

== ENCOUNTER 2020-12-14 12:43 | Emergency (ER) | payer MEDICAID ==
[~2020-12-14] VITALS: Ht 157.5 cm; Wt 85.0 kg
--- NOTE | 2020-12-14 13:01 | NUR ---
PT BIB [facility]. PER REPORT, PT HAS BEEN REPORTING ANXIETY AND SOB SINCE YESTERDAY AFTERNOON. PT REPORTS THAT SHE HAS HAD A LOT OF STRESSORS IN HER LIFE LATELY AND HAS BEEN FEELING VERY ANXIOUS. PT JUST HAD PACEMAKER PLACED 3 WEEKS AGO. PT DENIES ANY CHEST PAIN, PALPITAIONS, FEVER, NAUSEA OR VOMITING.
--- NOTE | 2020-12-14 14:07 | NUR ---
PT AMBULATED TO RESTROOM
[2020-12-14 14:50] LABS: ALBUMIN 3.4 g/dL (3.4-5.0); ANION GAP 8 mmol/L (5-15); CALCIUM 8.6 mg/dL (8.5-10.1); CHLORIDE 111 mmol/L (98-107); CREATININE 0.57 mg/dL (0.55-1.02)
[2020-12-14 14:54] LABS: TROPONIN I < 0.015 ng/mL (0.000-0.045)
--- NOTE | 2020-12-14 15:00 | NUR ---
REPORT GIVEN TO MICHELLE RUSS
[2020-12-14 15:38] LABS: MEAN CORPUSCULAR HEMOGLOBIN 20.8 pg (27.0-34.8); MEAN PLATELET VOLUME 8.4 fL (7.4-10.4); PLATELET COUNT 133 x10^3/uL (130-400); RED BLOOD COUNT 4.16 x10^6/uL (3.82-5.3); RED CELL DISTRIBUTION WIDTH 21.8 % (9.6-15.2)
[2020-12-14 16:00] LABS: MEAN CORPUSCULAR HGB CONC 29.7 g/dL (32.4-35.8)
[2020-12-14 16:01] LABS: MD YES
[2020-12-14 16:09] LABS: BASOS#(MANUAL) 0.23 x10^3/uL (0-0.1); BASOS% (MANUAL) 7 % (0-1); EOS% (MANUAL) 6 % (1-7); LYMPH#(MANUAL) 1.65 x10^3/uL (1-3.4); LYMPHS% (MANUAL) 50 % (22-44); MONOS#(MANUAL) 0.17 x10^3/uL (0.3-2.7); MONOS% (MANUAL) 5 % (2-9); SEG#(MANUAL) 1.06 x10^3/uL (1.8-6.8); SEGS% (MANUAL) 32 % (42-75)
[2020-12-14 16:11] LABS: ANISOCYTOSIS 1+; HYPOCHROMIA 1+; MICROCYTOSIS 1+
[2020-12-14 16:12] LABS: OVALOCYTES 1+
[2020-12-14 16:13] LABS: <PLATELET ESTIMATE> ADEQUATE; <PLT MORPHOLOGY> NORMAL PLT MORPH
[2020-12-14 16:29] VITALS: BP 105/71
--- NOTE | 2020-12-14 16:29 | NUR ---
this rn ambulated with pt on pulse oximeter, pt walked with steady gait and good balance, no desaturations noted while walking, though pt states she felt like she was short of breath, respirations were even and unlabored throughout. pt returned safely to bed, with no signs or symptoms of acute distress noted, vs charted, aware. pt will be ready to dc
== END 2020-12-14 17:03 | disposition home or self-care (01) ==
LOC: ED 12:59
DX: F41.1 Generalized anxiety disorder (principal); R06.00 Dyspnea, unspecified; E03.9 Hypothyroidism, unspecified; F17.210 Nicotine dependence, cigarettes, uncomplicated; K21.9 Gastro-esophageal reflux disease without esophagitis
CPT/HCPCS: 36415; 71045; 80048; 82040; 83880; 84484; 85025; 93005; 99406

== ENCOUNTER → 2021-01-07 | Outpatient (CLI) | payer MEDICAID | END | disposition home or self-care (01) | LOC: CFH 11:02 | PROVIDERS: ATTEND Nurse Practitioner Family | DX: R55 Syncope and collapse (principal); I49.5 Sick sinus syndrome; Z95.0 Presence of cardiac pacemaker | CPT/HCPCS: 71046 ==

== ENCOUNTER 2021-03-21 14:45 | Inpatient (IN) | payer MEDICAID ==
[~2021-03-21] VITALS: Ht 157.5 cm; Wt 97.6 kg
--- NOTE | 2021-03-21 15:09 | NUR ---
PT BROUGHT BACK TO ROOM FROM TRIAGE VIA WHEELCHAIR. PT CO N/V, ABD PAIN/SWELLING AND BILATERAL LEGS/FEET SWELLING X2-3 WEEKS. PT STATED THAT SHE HAS BEEN FEELING MORE FATIGUED OVER THE PAST COUPLE DAYS AND FEELS LIKE SHE IS GOING TO PASS OUT. PT DENIES ANY FEVER, DIARRHEA, CP OR SOB. PT STATED THAT SHE HAS BEEN "SICK FOR A LONG TIME" AND HAS HAD "INTERNAL BLEEDING FOR OVER A YEAR."
[2021-03-21] MEDS ORDERED: ONDANSETRON 2MG/ML, 2ML IVPush ONE (16:00)
[2021-03-21] MEDS ORDERED: SODIUM CHLORIDE FLUSH 10ML SYR IVF ONE (16:00)
[2021-03-21] MEDS ORDERED: MORPHINE SULFATE 4 MG/ML, 1ML IVPush PRN (16:00)
--- NOTE | 2021-03-21 16:00 | NUR ---
PT RESTING IN [facility]. CALL LIGHT WITHIN REACH.
[2021-03-21] MEDS ORDERED: MORPHINE SULFATE 4 MG/ML, 1ML ONE (16:14)
[2021-03-21] MEDS ORDERED: ONDANSETRON 2MG/ML, 2ML ONE (16:14)
[2021-03-21 16:27] LABS: MEAN CORPUSCULAR HEMOGLOBIN 30.2 pg (27.0-34.8); MEAN PLATELET VOLUME 8.3 fL (7.4-10.4); PLATELET COUNT 125 x10^3/uL (130-400); RED BLOOD COUNT 3.41 x10^6/uL (3.82-5.3); RED CELL DISTRIBUTION WIDTH 27.6 % (9.6-15.2)
[2021-03-21 16:30] LABS: ALANINE AMINOTRANSFERASE 41 U/L (12-78); ALBUMIN 2.1 g/dL (3.4-5.0); ANION GAP 9 mmol/L (5-15); CALCIUM 8.1 mg/dL (8.5-10.1); CHLORIDE 101 mmol/L (98-107); CREATININE 0.67 mg/dL (0.55-1.02)
[2021-03-21 16:34] LABS: ALKALINE PHOSPHATASE 222 U/L (45-117); BILIRUBIN,TOTAL 8.3 mg/dL (0.2-1.0); TOTAL PROTEIN 6.9 g/dL (6.4-8.2)
--- NOTE | 2021-03-21 17:01 | NUR ---
PT TO CT
[2021-03-21 17:02] LABS: BAND#(MANUAL) 0.59 x10^3/uL; BANDS%(MANUAL) 6 % (0-7); BASOS% (MANUAL) 1 % (0-1); LYMPHS% (MANUAL) 4 % (22-44); MONOS% (MANUAL) 2 % (2-9); SEG#(MANUAL) 8.61 x10^3/uL (1.8-6.8); SEGS% (MANUAL) 87 % (42-75)
[2021-03-21 17:04] LABS: HYPOCHROMIA 1+; POLYCHROMASIA 1+
[2021-03-21 17:05] LABS: OVALOCYTES 1+
[2021-03-21 17:06] LABS: <PLATELET ESTIMATE> DECREASED; <PLT MORPHOLOGY> NORMAL PLT MORPH
--- NOTE | 2021-03-21 18:00 | NUR ---
PT RESTING COMFORTABLY IN [facility]. CALL LIGHT WITHIN REACH. NAD
[2021-03-21 18:06] LABS: MICROSCOPIC INDICATED
--- NOTE | 2021-03-21 18:55 | NUR ---
PT RESTING COMFORTABLY IN [facility]. PT AWAITING ROOM ASSIGNMENT. NAD, ALL NEEDS MET AT THIS TIME.
[2021-03-21] MEDS ORDERED: CEFTRIAXONE 1,000 MG in DEXTROSE 5% 50 ML IVPB ONE (19:30)
--- NOTE | 2021-03-21 19:34 | NUR ---
REPORT FROM CLARE MARTINEZ.
[2021-03-21] MEDS ORDERED: LEVO50TA5 PO (19:45)
[2021-03-21] MEDS ORDERED: ENALAPRILAT 1.25 MG/ML, 2ML IVPush PRN (20:30)
[2021-03-21] MEDS ORDERED: BACLOFEN 10 MG TABLET PO PRN (20:30)
[2021-03-21] MEDS ORDERED: LACTATED RINGERS 1,000 ML IV SCH (20:30)
[2021-03-21] MEDS ORDERED: IBUPROFEN 600 MG TABLET PO PRN (20:30)
[2021-03-21] MEDS ORDERED: ZOLPIDEM 5MG TABLET PO PRN (20:30)
[2021-03-21] MEDS ORDERED: GUAIFENESIN/DM 200-20MG, 10ML UDC PO PRN (20:30)
[2021-03-21] MEDS ORDERED: DOCUSATE 100 MG CAPSULE PO PRN (20:30)
--- NOTE | 2021-03-21 20:35 | NUR ---
REPORT GIVEN TO NADEEM MARTINEZ.
[2021-03-21 21:05] LABS: INTERNATIONAL NORMALIZED RATIO 1.66 (0.93-1.1); PROTHROMBIN TIME 17.6 Seconds (9.6-11.5)
[2021-03-21] MEDS: SODIUM CHLORIDE 0.9% 1,000 ML IV SCH (22:40)
[2021-03-21] MEDS: FAMOTIDINE 20 MG TABLET PO SCH (22:40)
[2021-03-21] MEDS: ENOXAPARIN 40 MG/0.4 ML SQ SCH (22:40)
[2021-03-22 01:08] LABS: BASOPHILS % (AUTO) 2 % (0-1); EOSINOPHILS % (AUTO) 2 % (1-7); LYMPHOCYTES % (AUTO) 9 % (22-44); MEAN CORPUSCULAR HEMOGLOBIN 30.8 pg (27.0-34.8); MEAN CORPUSCULAR HGB CONC 30.3 g/dL (32.4-35.8); MEAN PLATELET VOLUME 8.6 fL (7.4-10.4); MONOCYTES % (AUTO) 6 % (2-9); NEUTROPHILS % (AUTO) 81 % (42-75); PLATELET COUNT 114 x10^3/uL (130-400); RED BLOOD COUNT 3.67 x10^6/uL (3.82-5.3)
[2021-03-22 01:20] LABS: ANION GAP 12 mmol/L (5-15); CALCIUM 7.7 mg/dL (8.5-10.1); CHLORIDE 101 mmol/L (98-107); CREATININE 0.67 mg/dL (0.55-1.02)
[2021-03-22 01:28] LABS: HYPOCHROMIA 1+; OVALOCYTES 1+; POLYCHROMASIA 1+
[2021-03-22 01:29] LABS: ANISOCYTOSIS 1+; TARGET CELLS 1+
[2021-03-22 01:30] LABS: <PLATELET ESTIMATE> DECREASED; <PLT MORPHOLOGY> NORMAL PLT MORPH
[2021-03-22 02:37] VITALS: BP 102/67
[2021-03-22] MEDS: OXYcodone IR 5MG TABLET PO PRN ×2 (05:35→14:22)
[2021-03-22] MEDS: LEVOTHYROXINE 50 MCG TABLET PO SCH (05:35)
[2021-03-22] MEDS: ONDANSETRON 2MG/ML, 2ML IVPush PRN ×3 (05:35→19:27)
[2021-03-22 07:21] VITALS: BP 98/62
[2021-03-22] MEDS: SODIUM CHLORIDE 0.9% 1,000 ML IV SCH (07:50)
[2021-03-22] MEDS: FAMOTIDINE 20 MG TABLET PO SCH ×2 (07:50→19:47)
[2021-03-22] MEDS: MULTIVITAMIN 1 TABLET PO SCH (07:50)
[2021-03-22] MEDS ORDERED: POTASSIUM CHLORIDE 20 MEQ TAB.ER.PRT PO ONE ×2 (11:00→14:00)
[2021-03-22 13:55] VITALS: BP 99/65
[2021-03-22] MEDS ORDERED: FUROSEMIDE 20 MG/2 ML IV SCH (17:00)
[2021-03-22 18:45] VITALS: BP 114/69
[2021-03-22] MEDS: ENOXAPARIN 40 MG/0.4 ML SQ SCH (19:47)
[2021-03-22] MEDS: CEFTRIAXONE 2 GM in DEXTROSE 5% 50 ML IVPB SCH (19:47)
[2021-03-23 02:13] VITALS: BP 103/67
[2021-03-23] MEDS: LEVOTHYROXINE 50 MCG TABLET PO SCH (05:16)
[2021-03-23] MEDS: ONDANSETRON 2MG/ML, 2ML IVPush PRN (05:17)
[2021-03-23] MEDS: OXYcodone IR 5MG TABLET PO PRN ×2 (05:17→18:28)
[2021-03-23 05:42] LABS: ALBUMIN 2.2 g/dL (3.4-5.0); ANION GAP 9 mmol/L (5-15); CALCIUM 7.9 mg/dL (8.5-10.1); CHLORIDE 101 mmol/L (98-107)
[2021-03-23 05:46] LABS: ALANINE AMINOTRANSFERASE 38 U/L (12-78); ALKALINE PHOSPHATASE 209 U/L (45-117); BILIRUBIN,TOTAL 8.2 mg/dL (0.2-1.0); CREATININE 0.72 mg/dL (0.55-1.02); TOTAL PROTEIN 7.3 g/dL (6.4-8.2)
[2021-03-23 06:06] LABS: BASOPHILS % (AUTO) 4 % (0-1); EOSINOPHILS % (AUTO) 2 % (1-7); LYMPHOCYTES % (AUTO) 11 % (22-44); MEAN CORPUSCULAR HEMOGLOBIN 30.8 pg (27.0-34.8); MEAN CORPUSCULAR HGB CONC 30.5 g/dL (32.4-35.8); MEAN PLATELET VOLUME 9.5 fL (7.4-10.4); MONOCYTES % (AUTO) 4 % (2-9); NEUTROPHILS % (AUTO) 80 % (42-75); PLATELET COUNT 125 x10^3/uL (130-400); RED BLOOD COUNT 3.36 x10^6/uL (3.82-5.3); RED CELL DISTRIBUTION WIDTH 26.6 % (9.6-15.2)
[2021-03-23 07:42] VITALS: BP 104/66
[2021-03-23] MEDS: CYANOCOBALAMIN 1,000 MCG TABLET PO SCH (08:49)
[2021-03-23] MEDS: FAMOTIDINE 20 MG TABLET PO SCH ×2 (08:49→21:47)
[2021-03-23] MEDS: MULTIVITAMIN 1 TABLET PO SCH (08:49)
[2021-03-23] MEDS: FUROSEMIDE 20 MG/2 ML IV SCH ×2 (12:58→18:29)
[2021-03-23 13:42] VITALS: BP 118/75
[2021-03-23] MEDS: CEFTRIAXONE 2 GM in DEXTROSE 5% 50 ML IVPB SCH (18:26)
[2021-03-23] MEDS: ENOXAPARIN 30 MG/0.3 ML SQ SCH (18:30)
[2021-03-23] MEDS: POTASSIUM CHLORIDE 20 MEQ TAB.ER.PRT PO SCH (21:47)
[2021-03-23 21:55] VITALS: BP 100/66
[2021-03-24 01:02] VITALS: BP 93/61
[2021-03-24 01:18] VITALS: BP 97/61
[2021-03-24] MEDS: ENOXAPARIN 30 MG/0.3 ML SQ SCH ×2 (02:24→12:57)
[2021-03-24 05:09] LABS: CHLORIDE 101 mmol/L (98-107)
[2021-03-24 05:24] LABS: ALANINE AMINOTRANSFERASE 39 U/L (12-78); ALBUMIN 1.9 g/dL (3.4-5.0); ALKALINE PHOSPHATASE 187 U/L (45-117); ANION GAP 6 mmol/L (5-15); BILIRUBIN,TOTAL 7.6 mg/dL (0.2-1.0); CALCIUM 7.8 mg/dL (8.5-10.1); CREATININE 0.61 mg/dL (0.55-1.02); TOTAL PROTEIN 6.7 g/dL (6.4-8.2)
[2021-03-24] MEDS: LEVOTHYROXINE 50 MCG TABLET PO SCH (05:48)
[2021-03-24 06:16] LABS: MEAN CORPUSCULAR HGB CONC 31.7 g/dL (32.4-35.8); MEAN PLATELET VOLUME 8.9 fL (7.4-10.4); PLATELET COUNT 132 x10^3/uL (130-400); RED CELL DISTRIBUTION WIDTH 26.7 % (9.6-15.2)
[2021-03-24 06:44] LABS: ANISOCYTOSIS 1+; BANDS%(MANUAL) 5 % (0-7); EOS% (MANUAL) 1 % (1-7); LYMPHS% (MANUAL) 7 % (22-44); MONOS% (MANUAL) 2 % (2-9); SEGS% (MANUAL) 85 % (42-75)
[2021-03-24 06:45] LABS: HYPOCHROMIA 1+; OVALOCYTES 1+; POLYCHROMASIA 1+; STOMATOCYTES 1+; TARGET CELLS 1+
[2021-03-24 06:46] LABS: <PLATELET ESTIMATE> ADEQUATE; <PLT MORPHOLOGY> NORMAL PLT MORPH
[2021-03-24 07:04] VITALS: BP 104/67
[2021-03-24] MEDS ORDERED: POTASSIUM CHLORIDE 20 MEQ TAB.ER.PRT PO SCH (08:00)
[2021-03-24] MEDS: MULTIVITAMIN 1 TABLET PO SCH (08:54)
[2021-03-24] MEDS: FAMOTIDINE 20 MG TABLET PO SCH ×2 (08:54→20:54)
[2021-03-24] MEDS: AMOXICILLIN/CLAV 875-125MG TABLET PO SCH ×2 (08:55→17:08)
[2021-03-24] MEDS: POTASSIUM CHLORIDE 20 MEQ TAB.ER.PRT PO SCH (08:55)
[2021-03-24] MEDS: CYANOCOBALAMIN 1,000 MCG TABLET PO SCH (08:56)
[2021-03-24] MEDS: FUROSEMIDE 40 MG/4 ML IV SCH ×2 (12:58→17:48)
[2021-03-24 14:27] VITALS: BP 99/67
[2021-03-24] MEDS ORDERED: SPIRONOLACTONE 25 MG TABLET PO SCH (15:30)
[2021-03-24] MEDS ORDERED: FUROSEMIDE 40 MG/4 ML IV SCH (17:00)
[2021-03-24] MEDS: OXYcodone IR 5MG TABLET PO PRN (17:09)
[2021-03-24 18:25] VITALS: BP 97/58
[2021-03-25 00:22] VITALS: BP 101/63
[2021-03-25] MEDS: ENOXAPARIN 30 MG/0.3 ML SQ SCH ×2 (02:19→14:03)
[2021-03-25] MEDS: LEVOTHYROXINE 50 MCG TABLET PO SCH (05:15)
[2021-03-25 05:20] LABS: ALBUMIN 1.9 g/dL (3.4-5.0); ANION GAP 9 mmol/L (5-15); CALCIUM 7.8 mg/dL (8.5-10.1); CHLORIDE 100 mmol/L (98-107)
[2021-03-25] MEDS ORDERED: ONDANSETRON ODT 4 MG ONE (05:20)
[2021-03-25 05:23] LABS: ALANINE AMINOTRANSFERASE 34 U/L (12-78); ALKALINE PHOSPHATASE 177 U/L (45-117); BILIRUBIN,TOTAL 7.9 mg/dL (0.2-1.0); CREATININE 0.63 mg/dL (0.55-1.02); TOTAL PROTEIN 6.5 g/dL (6.4-8.2)
[2021-03-25] MEDS: ONDANSETRON 2MG/ML, 2ML IVPush PRN (05:27)
[2021-03-25 07:04] VITALS: BP 95/16
[2021-03-25] MEDS ORDERED: POTASSIUM CHLORIDE 20 MEQ TAB.ER.PRT PO ONE (08:00)
[2021-03-25] MEDS ORDERED: SPIRONOLACTONE 25 MG TABLET PO SCH (09:00)
[2021-03-25] MEDS: CYANOCOBALAMIN 1,000 MCG TABLET PO SCH (09:00)
[2021-03-25] MEDS ORDERED: FUROSEMIDE 20 MG TABLET PO SCH (09:00)
[2021-03-25] MEDS: MULTIVITAMIN 1 TABLET PO SCH (09:22)
[2021-03-25] MEDS: POTASSIUM CHLORIDE 20 MEQ TAB.ER.PRT PO SCH (09:23)
[2021-03-25] MEDS: AMOXICILLIN/CLAV 875-125MG TABLET PO SCH ×2 (09:24→20:21)
[2021-03-25] MEDS: FAMOTIDINE 20 MG TABLET PO SCH ×2 (09:24→20:21)
[2021-03-25 11:04] VITALS: BP 91/54
[2021-03-25 12:39] VITALS: BP 104/64
[2021-03-25 20:01] VITALS: BP 98/64
[2021-03-26 00:56] VITALS: BP 99/61
[2021-03-26] MEDS: ENOXAPARIN 30 MG/0.3 ML SQ SCH (02:20)
[2021-03-26 05:07] LABS: ALANINE AMINOTRANSFERASE 31 U/L (12-78); ALBUMIN 1.9 g/dL (3.4-5.0); ANION GAP 7 mmol/L (5-15); CHLORIDE 100 mmol/L (98-107); CREATININE 0.66 mg/dL (0.55-1.02)
[2021-03-26 05:10] LABS: ALKALINE PHOSPHATASE 169 U/L (45-117); BILIRUBIN,TOTAL 8.4 mg/dL (0.2-1.0); TOTAL PROTEIN 6.5 g/dL (6.4-8.2)
[2021-03-26] MEDS: LEVOTHYROXINE 50 MCG TABLET PO SCH (05:15)
[2021-03-26 06:25] VITALS: BP 95/60
[2021-03-26] MEDS ORDERED: POTASSIUM CHLORIDE 20 MEQ TAB.ER.PRT PO ONE (08:00)
[2021-03-26] MEDS: FAMOTIDINE 20 MG TABLET PO SCH (08:50)
[2021-03-26] MEDS: AMOXICILLIN/CLAV 875-125MG TABLET PO SCH (08:50)
[2021-03-26] MEDS: POTASSIUM CHLORIDE 20 MEQ TAB.ER.PRT PO SCH (08:50)
[2021-03-26] MEDS: MULTIVITAMIN 1 TABLET PO SCH (08:50)
[2021-03-26] MEDS: CYANOCOBALAMIN 1,000 MCG TABLET PO SCH (08:51)
[2021-03-26] MEDS ORDERED: SPIRONOLACTONE 25 MG TABLET PO SCH (09:00)
[2021-03-26] MEDS ORDERED: FUROSEMIDE 20 MG TABLET PO SCH (09:00)
[2021-03-26] MEDS ORDERED: FURO20TA3 PO (11:33)
[2021-03-26] MEDS ORDERED: SPIR25TA PO (11:33)
[2021-03-26] MEDS ORDERED: POTA20TA6 PO (11:33)
[2021-03-26] MEDS ORDERED: AMOX1TAB12 PO (11:33)
== END 2021-03-26 12:09 | disposition home or self-care (01) | DRG 689 ==
LOC: ED 18:45 → EDIP 19:32 → 3N 20:50
PROVIDERS: ADMIT Internal Medicine; ATTEND Internal Medicine
PROC: 0T9B30Z Drainage of Bladder with Drainage Device, Percutaneous Approach (ICD-10-PCS; principal; 2021-03-21)
DX: N39.0 Urinary tract infection, site not specified (principal); I50.33 Acute on chronic diastolic (congestive) heart failure; E87.2 Acidosis; K70.30 Alcoholic cirrhosis of liver without ascites; K76.0 Fatty (change of) liver, not elsewhere classified; G25.81 Restless legs syndrome; F41.1 Generalized anxiety disorder; F17.200 Nicotine dependence, unspecified, uncomplicated; E87.6 Hypokalemia; B95.2 Enterococcus as the cause of diseases classified elsewhere; D64.9 Anemia, unspecified; E66.01 Morbid (severe) obesity due to excess calories; E03.9 Hypothyroidism, unspecified; E87.5 Hyperkalemia; F10.20 Alcohol dependence, uncomplicated; Z80.3 Family history of malignant neoplasm of breast; Z80.8 Family history of malignant neoplasm of other organs or systems; Z68.39 Body mass index [BMI] 39.0-39.9, adult; Z79.899 Other long term (current) drug therapy
CPT/HCPCS: 36415; 71045; 74177; 80048; 80053; 81001; 82728; 83540; 83550; 83605; 83735; 83880; 84100; 84466; 85025; 85610; 87040; 87077; 87086; 87186; 93970; 96374; 96375; 99285; G0378; J0696; J1650; J1940; J2405; J2270; J7030

== ENCOUNTER 2021-04-19 11:24 | Inpatient (IN) | payer MEDICAID ==
[~2021-04-19] VITALS: Ht 157.5 cm; Wt 95.8 kg
[~2021-04-19 11:24] MED LIST changes: +AMOX1TAB12 PO; +FURO20TA3 PO; +LEVO50TA5 PO; +POTA20TA6 PO; +SPIR25TA PO
--- NOTE | 2021-04-19 11:58 | NUR ---
PT REPORTS BRIGHT RED BLOOD IN URINE OR STOOL STARTING LAST NIGHT WITH AND CRAMPS, NAUSEA. PT IN BED IN GOWN WITH CONT SPO2, BPQ 30 MIN, SIDE RAILS UP X2, CALL LIGHT IN REACH. PT NOTIFIED THAT WE NEED A URINE WHEN SHE CAN PEE, PT UNABLE TO GET A URINE AT THIS TIME. AWATING MD TO SEE.
--- NOTE | 2021-04-19 12:39 | NUR ---
LAB IN ROOM. MD CABA IN ROOM FOR RECTAL/PELVIC EXAM
[2021-04-19 12:58] LABS: ALANINE AMINOTRANSFERASE 24 U/L (12-78); ALBUMIN 1.4 g/dL (3.4-5.0); ANION GAP 5 mmol/L (5-15); CALCIUM 7.6 mg/dL (8.5-10.1); CHLORIDE 102 mmol/L (98-107); CREATININE 0.65 mg/dL (0.55-1.02)
[2021-04-19 13:01] LABS: ALKALINE PHOSPHATASE 170 U/L (45-117); BILIRUBIN,TOTAL 5.9 mg/dL (0.2-1.0); TOTAL PROTEIN 7.5 g/dL (6.4-8.2)
[2021-04-19 13:14] LABS: MICROSCOPIC INDICATED
[2021-04-19 13:19] LABS: BASOPHILS % (AUTO) 1 % (0-1); EOSINOPHILS % (AUTO) 2 % (1-7); LYMPHOCYTES % (AUTO) 20 % (22-44); MEAN PLATELET VOLUME 8.2 fL (7.4-10.4); MONOCYTES % (AUTO) 7 % (2-9); NEUTROPHILS % (AUTO) 70 % (42-75); PLATELET COUNT 201 x10^3/uL (130-400); RED BLOOD COUNT 2.68 x10^6/uL (3.82-5.3); RED CELL DISTRIBUTION WIDTH 17.6 % (9.6-15.2)
--- NOTE | 2021-04-19 14:06 | NUR ---
PT AMBULATED TO RESTROOM WITH STEADY GAIT
[2021-04-19] MEDS ORDERED: THIAMINE 200 MG in DEXTROSE 5% 50 ML IVPB ONE (14:30)
[2021-04-19] MEDS ORDERED: LORazepam 2 MG/ML, 1ML IV PRN ×5 (14:30)
[2021-04-19] MEDS ORDERED: LORazepam 1MG TABLET PO PRN ×4 (14:30)
[2021-04-19] MEDS ORDERED: LORazepam 0.5MG TABLET PO PRN (14:30)
--- NOTE | 2021-04-19 14:40 | NUR ---
PHARMACY-NURSING COMMUNICATION FORM SENT FOR MEDS
[2021-04-19 14:43] LABS: INTERNATIONAL NORMALIZED RATIO 1.74 (0.93-1.1); PROTHROMBIN TIME 18.1 Seconds (9.6-11.5)
[2021-04-19] MEDS ORDERED: PANTOPRAZOLE 80 MG in SODIUM CHLORIDE 0.9% 50 ML IV ONE (14:47)
[2021-04-19 16:25] VITALS: BP 114/69
[2021-04-19] MEDS: GABAPENTIN 100 MG CAPSULE PO SCH ×2 (17:11→21:31)
[2021-04-19] MEDS: DIVALPROEX 125 MG CAP.SPRINK PO SCH ×2 (17:11→21:31)
[2021-04-19] MEDS: POTASSIUM CHLORIDE 20 MEQ TAB.ER.PRT PO SCH (17:11)
[2021-04-19] MEDS: PANTOPRAZOLE 80 MG in SODIUM CHLORIDE 0.9% 100 ML IV SCH (17:11)
[2021-04-19 17:36] VITALS: BP 114/78
[2021-04-19 19:01] VITALS: BP 108/66
[2021-04-19] MEDS: ONDANSETRON 2MG/ML, 2ML IV PRN (21:31)
[2021-04-20 01:57] VITALS: BP 101/62
[2021-04-20] MEDS: PANTOPRAZOLE 80 MG in SODIUM CHLORIDE 0.9% 100 ML IV SCH ×2 (02:42→11:16)
[2021-04-20 07:00] VITALS: BP 93/52
[2021-04-20] MEDS: GABAPENTIN 100 MG CAPSULE PO SCH ×2 (08:23→15:27)
[2021-04-20] MEDS: POTASSIUM CHLORIDE 20 MEQ TAB.ER.PRT PO SCH (08:23)
[2021-04-20] MEDS: DIVALPROEX 125 MG CAP.SPRINK PO SCH ×2 (08:23→15:27)
[2021-04-20] MEDS: ONDANSETRON 2MG/ML, 2ML IV PRN (08:24)
[2021-04-20] MEDS ORDERED: MULTIVITAMIN 1 TABLET PO SCH (09:00)
[2021-04-20] MEDS ORDERED: CYANOCOBALAMIN 1,000 MCG TABLET PO SCH (09:00)
[2021-04-20 13:46] VITALS: BP 98/66
== END 2021-04-20 16:40 | disposition home or self-care (01) | DRG 394 ==
LOC: ED 12:15 → EDIP 13:57 → SUATTDRO 14:00 → 4EST 15:25
PROVIDERS: ADMIT Internal Medicine; ATTEND Internal Medicine
PROC: 0T9B70Z Drainage of Bladder with Drainage Device, Via Natural or Artificial Opening (ICD-10-PCS; principal; 2021-04-19)
DX: K64.8 Other hemorrhoids (principal); D62 Acute posthemorrhagic anemia; D68.9 Coagulation defect, unspecified; E87.1 Hypo-osmolality and hyponatremia; I50.32 Chronic diastolic (congestive) heart failure; B37.49 Other urogenital candidiasis; E03.9 Hypothyroidism, unspecified; E66.9 Obesity, unspecified; Z68.38 Body mass index [BMI] 38.0-38.9, adult; E87.6 Hypokalemia; F10.20 Alcohol dependence, uncomplicated; F17.200 Nicotine dependence, unspecified, uncomplicated; K29.70 Gastritis, unspecified, without bleeding; K70.0 Alcoholic fatty liver; K70.10 Alcoholic hepatitis without ascites; K70.30 Alcoholic cirrhosis of liver without ascites; Z66 Do not resuscitate; Z80.3 Family history of malignant neoplasm of breast; Z80.8 Family history of malignant neoplasm of other organs or systems; Z82.49 Family history of ischemic heart disease and other diseases of the circulatory system; Z95.0 Presence of cardiac pacemaker
CPT/HCPCS: 36415; 76830; 80053; 81001; 83690; 83735; 84100; 85018; 85025; 85610; 86850; 86900; 87086; 87106; 96374; 96375; G0378; J2405; J3411; C9113